=== PATIENT | female | born 1980 | race Caucasian/White ===

== ENCOUNTER 2017-07-14 17:36 | Emergency (ER) | payer OTHER ==
[~2017-07-14] VITALS: Ht 165.1 cm; Wt 65.9 kg
[2017-07-14 17:40] VITALS: TEMP 100
[2017-07-14 18:31] LABS: PH 7 (5-8); SQUAMOUS EPITHELIAL 0-2 /hpf; URINE APPEARANCE Cloudy; URINE BACTERIA None Seen /hpf; URINE BILIRUBIN Negative (NEGATIVE); URINE BLOOD Negative (NEGATIVE); URINE COLOR Yellow; URINE GLUCOSE Negative (NEGATIVE); URINE KETONE Negative (NEGATIVE); URINE RBC 0-2 /hpf; URINE UROBILINOGEN Negative (NEGATIVE); URINE WBC None Seen /hpf
[2017-07-14 19:40] VITALS: BP 102/66; PULSE 74
[2017-07-14] MEDS ORDERED: ANTIVERT 25MG25 MG PO (19:42)
== END 2017-07-14 20:41 | disposition home or self-care (01) ==
LOC: COL.ER 17:36
PROVIDERS: Nurse Practitioner
DX: R42 Dizziness and giddiness (principal); G43.909 Migraine, unspecified, not intractable, without status migrainosus; F41.9 Anxiety disorder, unspecified